=== PATIENT | female | born 1950 | race Caucasian/White ===

== ENCOUNTER 2017-06-15 09:00 | Outpatient (CLI) | payer MEDICARE, OTHER ==
[~2017-06-15] VITALS: Ht 167.6 cm; Wt 79.4 kg
[~2017-06-15 09:00] MED LIST: ALPR.5T PO; ALPR0.5T72 PO; AMOX500C2 PO; CALC-80 PO; CEFP500T4 PO; CEPH500C PO; CHOL100061 PO; CITA20TA4 PO; ESCI10TA48 PO; FLAX100031 PO; GLUC1500 PO; IBUP200T48 PO; METH4TAB PO; SPIR25TA3 PO; SULF1TAB7 PO; TRAM50TA2 PO; TRIA16.5 NS
[2017-06-15] MEDS ORDERED: SPIR25TA3 PO (14:25)
[2017-06-15] MEDS ORDERED: PRAV20TA3 PO (14:25)
[2017-06-15] MEDS ORDERED: DOCU-143 PO (14:25)
[2017-06-15] MEDS ORDERED: CHOL10003 PO (14:25)
[2017-06-15] MEDS ORDERED: ALPR0.5T7 PO (14:25)
[2017-06-15] MEDS ORDERED: OMEG100032 PO (14:25)
[2017-06-15] MEDS ORDERED: ESCI10TA55 PO (14:25)
== END 2017-06-15 14:27 ==
LOC: PREOP 09:00
PROVIDERS: ATTEND Surgery
DX: Z01.818 Encounter for other preprocedural examination (principal); K62.5 Hemorrhage of anus and rectum; K64.9 Unspecified hemorrhoids

== ENCOUNTER 2017-06-22 07:50 | Day surgery (SDC) | payer MEDICARE, OTHER ==
--- NOTE | 2017-06-21 14:47 | History & Physicial ---
History of Present Illness History of Present Illness Reason for visit/HPI To undergo colonoscopy regarding rectal bleeding Date of Admission 06/22/17 Date Seen by Provider: Jun 21, 2017 Time Seen by Provider: 14:45 I consulted on this patient on 06/21/17 14:44 Attending Physician Clem Guidry MD Admitting Physician Jossie Slater DO Consult Allergies and Home Medications Allergies Coded Allergies: sulfamethoxazole (Unverified Allergy, Unknown, 09/17/14) trimethoprim (Unverified Allergy, Unknown, 09/17/14) Home Medications Alprazolam 0.5 Mg Tablet, 0.5 MG PO BID PRN for ANXIETY, (Reported) Cholecalciferol (Vitamin D3) 1,000 Unit Tablet, 1,000 UNIT PO DAILY, (Reported) Docusate Sodium 100 Mg Capsule, 100 MG PO BID, (Reported) Escitalopram Oxalate 10 Mg Tablet, 10 MG PO DAILY, (Reported) [place]ishers-3/Dha/Epa/Fish Oil 1,000 Mg Capsule, 1,000 MG PO DAILY, (Reported) Pravastatin Sodium 20 Mg Tablet, 20 MG PO HS, (Reported) Spironolactone 25 Mg Tablet, 25 MG PO DAILY, (Reported) Past Otzfsnq-Qxnung-Apwvjt Hx Patient Social History Marrital Status: Employed/Student: employed Former Smoker, Quit: Jun 15, 1979 Recent Hopitalizations: No Immunizations Up To Date Date of Influenza Vaccine: Jan 23, 2017 Seasonal Allergies Seasonal Allergies: No Surgeries Yes Hysterectomy Cardiovascular Yes High Cholesterol Neurological No Reproductive System Hx Reproductive Disorders: No Sexually Transmitted Disease: No HIV/AIDS: No Female Reproductive Disorders: Denies [employer] History: Hysterectomy Gastrointestinal Yes Hemorrhoids Musculoskeletal Yes Arthritis Endocrine History of Endocrine Disorders: No HEENT History of HEENT Disorders: No Psychosocial History of Psychiatric Problem: Yes Behavioral Health Disorders: Anxiety, Depression Blood Transfusions Adverse Reaction to a Blood Tr: No Constitutional: no symptoms reported EENTM: no symptoms reported Cardiovascular: no symptoms reported Gastrointestinal: see HPI Genitourinary: no symptoms reported Musculoskeletal: joint pain Skin: no symptoms reported Psychiatric/Neurological: Anxiety Physical Exam Vital Signs Capillary Refill : General Appearance: No Apparent Distress Neck: Normal Inspection Respiratory: Lungs Clear Cardiovascular: Regular Rate, Rhythm Gastrointestinal: Non Tender, Soft Rectal: Deferred Extremity: Normal Inspection Neurologic/Psychiatric: Alert Skin: Warm/Dry Assessment/Plan Assessment and Plan Lady with a history of rectal bleeding. For colonoscopy Problems: CLEM GUIDRY MD Jun 21, 2017 14:47
[~2017-06-22] VITALS: Ht 167.6 cm; Wt 79.4 kg
[~2017-06-22 07:50] MED LIST changes: +ALPR0.5T7 PO; +CHOL10003 PO; +DOCU-143 PO; +ESCI10TA55 PO; +OMEG100032 PO; +PRAV20TA3 PO
--- OUTSIDE RECORDS SUMMARY | 2017-06-22 07:54 | XMS REPORT | Continuity of Care Document ---
Author Author [facility] Organization [facility] Address Unknown Phone Unavailable Allergies Active Description Code Type Severity Reaction Onset Reported/Identified Relationship to Patient Clinical Status Yes sulfamethoxazole [id number] Drug Allergy Unknown N/A 09/17/2014 Yes trimethoprim [id number] Drug Allergy Unknown N/A 09/17/2014 Medications There is no data. Problems Date Dx Coded Attending Type Code Diagnosis Diagnosed By 11/02/2009 Ot 995.1 11/02/2009 Ot E931.0 04/24/2011 Ot 461.9 04/24/2011 Ot 784.0 03/13/2014 ELISEO LOCKWOOD DO Ot V76.12 07/17/2014 ARIANNE DO, LOUANN F Ot V43.64 07/17/2014 ARIANNE DO, LOUANN F Ot V54.81 07/17/2014 ARIANNE DO, LOUANN F Ot V57.1 07/28/2014 ARIANNE DO, LOUANN F Ot V43.64 07/28/2014 ARIANNE DO, LOUANN F Ot V54.81 07/28/2014 ARIANNE DO, LOUANN F Ot V57.1 07/31/2014 ARIANNE DO, LOUANN F Ot V43.64 07/31/2014 ARIANNE DO, LOUANN F Ot V54.81 07/31/2014 ARIANNE DO, LOUANN F Ot V57.1 08/04/2014 ARIANNE DO, LOUANN F Ot V43.64 08/04/2014 ARIANNE DO, LOUANN F Ot V54.81 08/04/2014 ARIANNE DO, LOUANN F Ot V57.1 08/07/2014 Ot V58.61 08/07/2014 Ot V58.83 08/07/2014 Ot V58.61 08/07/2014 Ot V58.83 08/19/2014 Ot V76.12 08/19/2014 Ot V76.12 08/19/2014 Ot V76.12 08/19/2014 ELISEO LOCKWOOD DO Ot V76.12 08/19/2014 Ot V58.61 08/19/2014 Ot V58.83 08/19/2014 ARIANNE LOUANN ORDONEZ Ot V43.64 08/19/2014 ARIANNELOUANN DACOSTA DO Ot V54.81 08/19/2014 LOUANN ACUÑA DO Ot V57.1 09/02/2014 LOUANN ACUÑA DO Ot V43.64 HIP JOINT REPLACEMENT STATUS 09/02/2014 LOUANN ACUÑA DO Ot V54.81 AFTERCARE FOLLOWING JOINT REPLACEMENT 09/02/2014 LOUANN ACUÑA DO Ot V57.1 PHYSICAL THERAPY NEC 09/12/2014 Ot V58.61 09/12/2014 Ot V58.83 09/17/2014 CECELIA LING, CLEM Kate Ot 214.1 LIPOMA SKIN NEC 09/17/2014 CECELIA LING, CLEM Kate Ot 300.00 ANXIETY STATE NOS 09/17/2014 CECELIA LING, CLEM Kate Ot 311 DEPRESSIVE DISORDER NEC 09/17/2014 CECELIA LING, CLEM Kate Ot 401.9 HYPERTENSION NOS 09/20/2014 CECELIA LING, CLEM Kate Ot 214.9 09/20/2014 CECELIA LING, CLEM Kate Ot V72.63 09/20/2014 CECELIA LING, CLEM Kate Ot V74.8 11/19/2014 MANDIE ORDONEZ, ELISEO S Ot 733.90 06/04/2015 Ot Z12.31 06/15/2017 MANDIE ORDONEZ ELISEO S Ot V76.12 OTH SCREEN MAMMO-MALIGN NEOPLASM OF JAILYN 06/15/2017 Ot V58.61 ANTICOAGULANTS,LT,CURRENT USE 06/15/2017 Ot V58.83 ENCOUNTER FOR THERAPEUTIC DRUG MONITORIN 06/15/2017 CECELIA LING, CLEM Kate Ot 214.9 LIPOMA NOS 06/15/2017 CECELIA LING, CLEM Kate Ot V72.63 PRE-PROCEDURAL LABORATORY EXAMINATION 06/15/2017 CECELIA LING, CLEM Kate Ot V74.8 SCREEN-BACTERIAL DIS NEC 06/15/2017 CECELIA LING, CLEM Kate Ot 214.1 LIPOMA SKIN NEC 06/15/2017 CECELIA LING, CLEM Kate Ot V72.84 EXAM PRE-OPERATIVE NOS 06/15/2017 SOCONDISABEL DACOSTA DOQUELINE S Ot 733.90 BONE CARTILAGE DIS NOS 06/15/2017 Ot Z12.31 ENCNTR SCREEN MAMMOGRAM FOR MALIGNANT NE 06/15/2017 CLEM RAI MD Ot K62.5 HEMORRHAGE OF ANUS AND RECTUM 06/15/2017 CLEM RAI MD Ot K64.9 UNSPECIFIED HEMORRHOIDS 06/15/2017 CLEM RAI MD Ot Z01.818 ENCOUNTER FOR OTHER PREPROCEDURAL EXAMIN 06/16/2017 CLEM RAI MD Ot K62.5 HEMORRHAGE OF ANUS AND RECTUM 06/16/2017 CLEM RAI MD Ot K64.9 UNSPECIFIED HEMORRHOIDS 06/16/2017 CLEM RAI MD Ot Z01.818 ENCOUNTER FOR OTHER PREPROCEDURAL EXAMIN Procedures There is no data. Results There is no data. Encounters ACCT No. Visit Date/Time Discharge Status Pt. Type Provider Facility Loc./Unit Complaint [id number] 06/15/2017 09:00:00 06/15/2017 14:27:00 DIS Outpatient CLEM RAI MD [facility] PREOP COLONOSCOPY [id number] 10/29/2014 07:56:00 10/29/2014 23:59:59 CLS Outpatient ELISEO LOCKWOOD DO [facility] RAD OSTEOPENIA [id number] 09/17/2014 06:00:00 09/17/2014 11:02:00 DIS Outpatient CLEM RAI MD [facility] SDC LIPOMA [id number] 09/10/2014 05:45:00 09/10/2014 23:59:59 CLS Outpatient CLEM RAI MD [facility] PREOP LIPOMA [id number] 09/02/2014 14:10:00 09/02/2014 14:55:00 DIS Outpatient LOUANN ACUÑA DO [facility] REHAB S/P L THR [id number] 08/19/2014 07:43:00 08/19/2014 23:59:59 CLS Outpatient CLEM RAI MD [facility] PREOP LIPOMA [id number] 02/27/2014 14:14:00 02/27/2014 23:59:59 CLS Outpatient ELISEO LOCKWOOD DO [facility] RAD SCREENING [id number] 06/22/2017 09:00:00 MARINO RAI MD, CLEM Kate [facility] ENDO RECTAL BLEEDING/HEMORRHOIDS [id number] 05/14/2015 13:34:00 Document Registration [id number] 08/19/2014 10:44:00 Document Registration [id number] 06/13/2014 10:00:00 Document Registration [id number] 11/24/2011 08:24:00 Document Registration [id number] 04/24/2011 01:23:00 Document Registration [id number] 09/17/2010 14:57:00 Document Registration [id number] 11/02/2009 06:15:00 Document Registration [id number] 09/17/2009 09:32:00 Document Registration
[2017-06-22] MEDS ORDERED: NS IV 500 ML 500 ML IV PRN (07:59)
[2017-06-22 08:13] VITALS: BP 132/73
[2017-06-22] MEDS ORDERED: fentaNYL INJECTION 100 MCG/2 ML AMP ONE (08:47)
[2017-06-22] MEDS ORDERED: MIDAZOLAM 2 MG/2 ML (VERSED) VIAL ONE ×4 (08:47)
--- NOTE | 2017-06-22 08:52 | Conscious Sedation/ASA ---
Conscious Sedation Pre-Proced Time Reviewed: 08:52 ASA Class: 2 Airway Mallampati Classification: ([place] appropriate class) I. II. III, IV Lungs Heart ASA score ASA 1: a normal healthy patient ASA 2: a patient with a mild systemic disease (mid diabetes, controlled hypertension, obesity ASA 3: a patient with a severe systemic disease that limits activity (angina , COPD, prior Myocardial infarction) ASA 4: a patient with an incapacitating disease that is a constant threat to life (CHF, renal failure) ASA 5: a moribund patient not expected to survive 24 hrs. (ruptured aneurysm) ASA 6: a declared brain patient whose organs are being harvested. For emergent operations, add the letter E after the classification Grade 1 Sedation Plan: Discussed options with patient/fam Note The patient is an appropriate candidate to undergo the planned procedure, sedation, and anesthesia. The patient immediately re-assessed prior to indication. CLEM RAI MD Jun 22, 2017 8:52 am
[2017-06-22] MEDS: MIDAZOLAM 2 MG/2 ML (VERSED) VIAL IVP PRN ×4 (08:56→09:07)
[2017-06-22] MEDS: fentaNYL INJECTION 100 MCG/2 ML AMP IVP PRN ×2 (08:57→08:59)
--- NOTE | 2017-06-22 09:22 | Endo Procedure Record ---
Endo Procedure Report Date of Procedure Last Colonoscopy: Yes Jun 22, 2017 Surgeon (s) CLEM RAI MD Post Procedure/Op Diagnosis Sigmoid diverticulosis. Very minimal hemorrhoids. Procedure Performed Colonoscopy to cecum Description of Procedure Anesthesia Type: Conscious Sedation Specimen(s) collected/removed none Description of the Procedure Indication for the procedure: This lady came in for colonoscopy to evaluate occasional rectal bleeding and intermittent rectal pain. She denied any family history of polyps and colon cancer. Informed consent was obtained after reviewing the procedure in detail. Description of the procedure: She was placed in left lateral decubitus position and her vital signs were monitored. Conscious sedation was achieved using Versed and fentanyl. Examination of the perianal area revealed a mild degree of external hemorrhoids and skin tags. No fissure was identified. Digital examination was unremarkable. The colonoscope was then introduced into the rectum and advanced all the way up to the cecum. The scope was withdrawn slowly and the mucosa examined in a systematic fashion. The quality of bowel preparation was excellent. Findings: Minimal hemorrhoids, the source of her bleeding. Sigmoid diverticulosis. No polyps were found She tolerated the procedure well and was taken back to the nursing area in a stable condition. Impression: Rectal pain, no fissure. Minimal hemorrhoids. Sigmoid diverticulosis. Recommend screening colonoscopy in 10 years. Copies To: ELISEO LOCKWOOD XAVIER M MD Jun 22, 2017 9:22 am
--- NOTE | 2017-06-22 09:23 | Discharge Inst-Simple/Standard ---
Discharge Inst-Standard Discharge Medications New, Converted or Re-Newed RX: Other Patient Instructions/Follow Up Plan of Care/Instructions/FU: Screening colonoscopy in 10 years Activity as Tolerated: Yes Discharge Diet: No Restrictions CLEM RAI MD Jun 22, 2017 9:23 am
[2017-06-22 09:40] VITALS: BP 104/68
[2017-06-22 10:10] VITALS: BP 119/77
[2017-06-22 10:15] VITALS: BP 119/77
== END 2017-06-22 10:15 | disposition home or self-care (01) ==
LOC: ENDO 07:50
PROVIDERS: ATTEND Surgery
DX: K62.5 Hemorrhage of anus and rectum (principal); K62.89 Other specified diseases of anus and rectum; K57.30 Diverticulosis of large intestine without perforation or abscess without bleeding; K64.4 Residual hemorrhoidal skin tags; E78.00 Pure hypercholesterolemia, unspecified; F41.9 Anxiety disorder, unspecified; M19.91 Primary osteoarthritis, unspecified site; Z79.899 Other long term (current) drug therapy

== ENCOUNTER 2017-12-06 14:15 | Outpatient (RCR) | payer MEDICARE, OTHER ==
[~2017-12-06 14:15] MED LIST changes: +SPIR25TA5 PO
== END 2018-01-05 | disposition home or self-care (01) ==
LOC: CR3 14:15
PROVIDERS: ATTEND Family Medicine
DX: Z29.8 Encounter for other specified prophylactic measures (principal)

== ENCOUNTER 2017-12-28 13:56 | Outpatient (RCR) | payer MEDICARE, OTHER | END 2017-12-29 08:34 | disposition home or self-care (01) | PROVIDERS: ATTEND Orthopaedic Surgery | DX: M16.12 Unilateral primary osteoarthritis, left hip (principal) ==

== ENCOUNTER → 2018-04-10 | Outpatient (CLI) | payer MEDICARE, OTHER ==
--- NOTE | 2018-04-10 15:43 | Diagnostic Imaging Report ---
INDICATION: Routine screening. COMPARISON is made with prior mammogram from 05/14/2015 and 02/27/2014. 2-D and 3-D bilateral screening mammography was performed with CAD. Both breasts remain heterogeneously dense, limiting the sensitivity of mammography. A circumscribed mass in the central right breast appears stable. No new mass or malignant-appearing microcalcifications are seen. The axillae are unremarkable. IMPRESSION: BI-RADS category 2 No mammographic features suspicious for malignancy are identified. ACR BI-RADS Category 2: Benign findings. Result letter will be mailed to the patient. Note: At least 10% of breast cancer is not imaged by mammography. Dictated by: Dictated on workstation # [id number]
== END ==
LOC: RAD 14:05
PROVIDERS: ATTEND Family Medicine
DX: Z12.31 Encounter for screening mammogram for malignant neoplasm of breast (principal)
CPT/HCPCS: 77067

== ENCOUNTER → 2018-12-26 | Outpatient (CLI) | payer MEDICARE, OTHER | LOC: CARD 15:01 | PROVIDERS: ATTEND Family Medicine | DX: I49.9 Cardiac arrhythmia, unspecified (principal) | CPT/HCPCS: 93005 ==

== ENCOUNTER → 2019-01-28 | Outpatient (CLI) | payer MEDICARE, OTHER ==
[2019-01-28 17:20] VITALS: BP 126/69
--- NOTE | 2019-01-28 17:20 | Cardiology Stress Test Report ---
Stress Test Report Date of Procedure/Referring: Date of Procedure: Jan 28, 2019 PCP Jossie Slater DO Admitting Physician Jossie Slater DO Indications: Cardiac arrhythmia Baseline Heart Rate: 64 Baseline Blood Pressure: Blood Pressure Systolic: 126 Blood Pressure Diastolic: 69 Baseline EKG: Baseline EKG: normal sinus rhythm Summary/Conclusion: Summary: In summary, the patient started exercising with a baseline heart rate, blood pressure and EKG mentioned above Patient was able to exercise for a total of 6:30 minutes on Giovanni protocol, 7.9 METs Maximum heart rate 149 Maximum blood pressure 196/76 Stress EKG Minimal nondiagnostic changes Recovery EKG Return to baseline Conclusion: 1. Good exercise tolerance for a total of 6:30 minutes on Giovanni protocol, 7.9 METs, achieving 98 percent of maximum expected heart rate 2. Minimal nondiagnostic EKG changes with exercise returned to baseline during recovery 3. Multiple PVCs and transient episode of ventricular bigeminy noted during recovery, multiple short runs of atrial tachycardia up to 5 beats noted during recovery MATIAS ARRIETA MD Jan 28, 2019 17:20
== END ==
LOC: CARD 10:04
PROVIDERS: ATTEND Family Medicine
DX: I49.9 Cardiac arrhythmia, unspecified (principal)
CPT/HCPCS: 93017; 93306

== ENCOUNTER → 2020-06-05 | Outpatient (CLI) | payer MEDICARE, OTHER ==
[~2020-06-05] MED LIST changes: +ESCI-2 PO; -ESCI10TA55 PO
--- NOTE | 2020-06-07 15:19 | Diagnostic Imaging Report ---
INDICATION: Screening. At this time there are no current complaints. EXAMINATION: Digital mammogram bilateral screening. 3D tomographic images were obtained and reviewed. The current study was also evaluated with a Computer Aided Detection (CAD) system. COMPARISON: This study was compared to the prior exams of 04/10/2018, 05/14/2015 and 02/27/2014. FINDINGS: The fibroglandular tissue in both breasts is heterogeneously dense. This does limit the sensitivity of this exam. The 2 cm nodular asymmetry in the midportion of the right breast, seen on the prior exam, has either diminished in size or resolved. There is no primary or secondary sign of malignancy noted. IMPRESSION: There is no evidence of malignancy. ACR BI-RADS Category 1: Negative. Result letter will be mailed to the patient. Note: At least 10% of breast cancer is not imaged by mammography. Dictated by: Dictated on workstation # [id number]
== END ==
LOC: RAD 14:00
PROVIDERS: ATTEND Nurse Practitioner Family
DX: Z12.31 Encounter for screening mammogram for malignant neoplasm of breast (principal)
CPT/HCPCS: 77063; 77067

== ENCOUNTER → 2021-03-16 | Outpatient (CLI) | payer MEDICARE, OTHER ==
[~2021-03-16] MED LIST changes: +GADOTERATE 0.5 MMOL/ML (CLARISCAN) 15 ML VIAL IV ONE
--- NOTE | 2021-03-16 18:40 | Diagnostic Imaging Report ---
INDICATION: Sudden visual loss in the left eye. COMPARISON: No prior studies are available for comparison. Ventricular size and sulcal pattern are normal. No diffusion restriction is identified to suggest acute ischemia. The normal expected flow-voids within the carotid siphons are seen. No acute intra-axial or extra-axial hemorrhage is detected. There is no midline shift. Both globes are unremarkable. The extraocular muscles are symmetric bilaterally. No retrobulbar mass or fluid collection is seen. No abnormal enhancement following contrast administration is identified. Corpus callosum is unremarkable. The sella and parasellar structures are unremarkable. IMPRESSION: Unremarkable MRI of the brain and orbits with and without contrast. No acute feature is detected. Dictated by: Dictated on workstation # [id number]
== END ==
LOC: RAD 16:30
PROVIDERS: ATTEND Family Medicine
DX: H46.9 Unspecified optic neuritis (principal)
CPT/HCPCS: 70553

== ENCOUNTER → 2021-04-29 | Outpatient (CLI) | payer MEDICARE, OTHER ==
[~2021-04-29] MED LIST changes: -GADOTERATE 0.5 MMOL/ML (CLARISCAN) 15 ML VIAL IV ONE
--- NOTE | 2021-04-29 13:24 | Diagnostic Imaging Report ---
PROCEDURE: US carotid duplex, bilateral. TECHNIQUE: Multiple real-time grayscale images were obtained over the carotid arteries in various projections, bilaterally. Additional spectral analysis and color Doppler duplex images were also obtained. INDICATION: Optic neuritis Parameters based on the consensus panel Briceno-Scale and Doppler ultrasound criteria published February 2003, Radiology, Volume 229. DOPPLER (peak systolic velocity M/S Right Left CCA 1.2 1.3 ICA Proximal .70 .82 ICA Mid .66 .73 ICA Distal .78 .80 RATIO 1.2 1.0 ECA .91 .65 VERT .58 .51 Minimal plaque is present. Waveforms are normal. Normal antegrade flow within the bilateral vertebral arteries. IMPRESSION: Less than 50% stenosis of the bilateral internal carotid arteries by velocity and ratio criteria. Dictated by: Dictated on workstation # [id number]
== END ==
LOC: RAD 12:30
PROVIDERS: ATTEND Family Medicine
DX: H46.9 Unspecified optic neuritis (principal)
CPT/HCPCS: 36415; 85652; 86141; 93880

== ENCOUNTER → 2021-06-08 | Outpatient (CLI) | payer MEDICARE, OTHER ==
--- NOTE | 2021-06-10 11:14 | Diagnostic Imaging Report ---
Digital mammogram bilateral screening This study was compared to the prior exams of 06/05/2020, 04/10/2018 and 05/14/2015. At this time, there are no current complaints. The current study was also evaluated with a Computer Aided Detection (CAD) system. FINDINGS: The fibroglandular tissue in both breasts is heterogeneously dense. This does limit the sensitivity of this exam. Overall, there does not appear to have been any significant change when compared to the prior study. No primary or secondary sign of malignancy is noted. IMPRESSION: There is no radiographic evidence for malignancy. ACR category 1 ACR BI-RADS Category 1: Negative. Result letter will be mailed to the patient. Note: At least 10% of breast cancer is not imaged by mammography. Dictated by: Dictated on workstation # [id number]
== END ==
LOC: RAD 14:30
PROVIDERS: ATTEND Family Medicine
DX: Z12.31 Encounter for screening mammogram for malignant neoplasm of breast (principal)
CPT/HCPCS: 77063; 77067

== ENCOUNTER → 2022-08-10 | Outpatient (CLI) | payer MEDICARE, OTHER ==
--- NOTE | 2022-08-10 13:46 | Diagnostic Imaging Report ---
Indication: Routine screening. Comparison is made with prior mammogram from 06/08/2021 and 06/05/2020. 2-D and 3-D bilateral screening mammography was performed with CAD. CAD is utilized. The current study was also evaluated with a Computer Aided Detection (CAD) system. Both breasts are heterogeneously dense, limiting the sensitivity of mammography. The parenchymal pattern appears stable. No mass or malignant-appearing microcalcifications are seen. Axillae are unremarkable. IMPRESSION: BI-RADS Category 1 No mammographic features suspicious for malignancy are identified. ACR BI-RADS Category 1: Negative. Result letter will be mailed to the patient. Note: At least 10% of breast cancer is not imaged by mammography. Dictated by: Dictated on workstation # [id number]
== END ==
LOC: RAD 10:55
PROVIDERS: ATTEND Family Medicine
DX: Z12.31 Encounter for screening mammogram for malignant neoplasm of breast (principal)
CPT/HCPCS: 77063; 77067